=== PATIENT | male | born 1955 | race Hispanic/Latino ===

== ENCOUNTER 2017-08-11 09:34 | Emergency (ER) | payer OTHER ==
[2017-08-11 09:42] VITALS: BMI 31.7
--- NOTE | 2017-08-11 09:51 | ED PDOC ---
Arrival/HPI - General Time Seen by Provider: 08/11/17 09:43 Historian: Patient - History of Present Illness Narrative History of Present Illness (Text): 08/11/17 09:47 This 62 yo male presents to this Emergency department complaining of head injury x GRANULATOR. Patient stated while getting out of his job's truck, he bumped his head to a metal edge. Patient noticed bleeding form the wound. Denies loc , diplopia, dyasrthria, weakness, paresthesias, dizziness, or abnormal gait. Last tetanus > 5 years Denies other complains. Time/Duration: Prior to Arrival Context: Work Past Medical History - Provider Review Nursing Documentation Reviewed: Yes Family/Social History - Physician Review Nursing Documentation Reviewed: Yes Family/Social History: Other (non contributory) Allergies/Home Meds Allergies/Adverse Reactions: Allergies No Known Allergies Allergy (Verified 08/11/17 09:54) Home Medications: Home Meds Medication Instructions Recorded Confirmed metFORMIN [glucOPHAGE] 500 mg PO BID MDD 1000 08/11/17 08/11/17 Review of Systems - Review of Systems Constitutional: Normal. absent: Fatigue, Weight Change, Fevers Eyes: Normal ENT: Normal Respiratory: Normal Cardiovascular: Normal Gastrointestinal: Normal Genitourinary Male: Normal Musculoskeletal: Normal Skin: Other (scalp bleeding wound) Neurological: Normal Endocrine: Normal Hemo/Lymphatic: Normal Psychiatric: Normal Physical Exam Vital Signs Temp Pulse Resp BP Pulse Ox 08/11/17 09:50 98.3 F 63 16 151/85 H 98 08/11/17 09:42 98.9 F Temperature: Afebrile Blood Pressure: Normal Pulse: Regular Respiratory Rate: Normal Appearance: Positive for: Well-Appearing, Non-Toxic, Comfortable Pain Distress: None Mental Status: Positive for: Alert and Oriented X 3 - Systems Exam Head: Present: Atraumatic, Normocephalic, Abrasion (linear , transverse abrasion . No active bleeding. Approx. 2 cm), Other (no raccoon sign. no murguia sign) Pupils: Present: PERRL, Other (no hyphema) Extroacular Muscles: Present: EOMI Conjunctiva: Present: Normal Ears: Present: Normal, NORMAL TM, Other (no hemotympanum) Mouth: Present: Moist Mucous Membranes Neck: Present: Normal Range of Motion Back: Present: Normal Inspection Upper Extremity: Present: Normal Inspection, Normal ROM, NORMAL PULSES, Neurovascularly Intact, Capillary Refill < 2s Lower Extremity: Present: Normal Inspection, Normal ROM Neurological: Present: GCS=15, CN II-XII Intact, Speech Normal, Motor Func Grossly Intact, Normal Sensory Function, Normal Cerebellar Funct, Gait Normal, Memory Normal Skin: Present: Warm, Dry, Normal Color. No: Rashes Psychiatric: Present: Alert, Oriented x 3, Normal Insight, Normal Concentration Medical Decision Making ED Course and Treatment: 08/11/17 10:05 Re-evaluation. Patient feels better. Discussed results and plan with patient who expresses understanding. All questions answered and there is agreement with the plan to discharge home with instructions. Patient stable for discharge. Return if symptoms persist or worsen. Patient came due to a bleeding wound from scalp. He scraped his head against a sharp metal. Last tetanus was ukn. Patient denies loc, goldstein, dizziness, diplopia , or abnormal gait. Patient is not taking blood thinners. Patient denies other complains. Physical exam demonstrates a superficial scalp abrasion, and wound care was performed by Emergency department tech. Patient was recommended to f/u pmd or worker's comp. for further evaluation. Patient was recommended to return to emergency department if he develops nausea , vomiting, CMS, diplopia, dysathria, or abnormal gait. Re-evaluation Time: 10:05 Reassessment Condition: Re-examined, Improved - Medication Orders Current Medication Orders: Discontinued Medications Tetanus/Reduced Diphtheria/Acell Pertussis (Boostrix Vaccine Inj) 0.5 ml IM .ONCE ONE Stop: 08/11/17 09:55 Last Admin: 08/11/17 10:01 Dose: 0.5 ml Disposition/Present on Arrival - Present on Arrival Any Indicators Present on Arrival: No History of DVT/PE: No History of Uncontrolled Diabetes: No Urinary Catheter: No - Disposition Have Diagnosis and Disposition been Completed?: Yes Diagnosis: Scalp abrasion Disposition: HOME/ ROUTINE Disposition Time: 10:06 Patient Plan: Discharge Condition: GOOD Discharge Instructions (ExitCare): Abrasion (ED) Additional Instructions: Call private doctor for follow up visit and wound recheck in 1-2 days. Clean wound daily with soap and water daily. Return to emergency if headache, nausea , vomiting, dizziness, abnormal gait, or if symptoms worsen. Referrals: [facility] [Outside] - Follow up with primary [facility] [Outside] - Follow up with primary Forms: [employer] (Italian), WORK NOTE
[2017-08-11] MEDS ORDERED: TDAP Vaccine 0.5 mL Syr IM ONE (09:54)
[2017-08-11 09:57] VITALS: RESP 16; TEMP 98.3; O2SAT 98
[2017-08-11 10:37] VITALS: BP 146/82; PULSE 80
== END 2017-08-11 10:36 | disposition home or self-care (01) ==
LOC: ED 09:34
DX: S00.01XA Abrasion of scalp, initial encounter (principal); W22.8XXA Striking against or struck by other objects, initial encounter; Y93.89 Activity, other specified; Y92.89 Other specified places as the place of occurrence of the external cause; Y99.0 Civilian activity done for income or pay; Z23 Encounter for immunization